=== PATIENT | male | born 1965 | race Caucasian/White ===

== ENCOUNTER 2018-03-05 16:26 | Emergency (ER) | payer OTHER ==
[2018-03-05] MEDS: IBUPROFEN 600 MG TAB PO (17:51)
== END 2018-03-05 19:07 | disposition home or self-care (01) ==
LOC: FTE 16:26
DX: S62.242A Displaced fracture of shaft of first metacarpal bone, left hand, initial encounter for closed fracture (principal); W18.39XA Other fall on same level, initial encounter; Y92.89 Other specified places as the place of occurrence of the external cause
CPT/HCPCS: 29125; 73030; 73080-LT; 73110-LT; 73130-LT; 99283-25